=== PATIENT | male | born 1965 | race Caucasian/White ===

== ENCOUNTER → 2016-03-15 | Outpatient (CLI) | payer BC ==
[~2016-03-15] MED LIST: NORCO 325 MG-7.1 TAB PO; XANAX 0.5MG0.5 MG PO
== END ==
LOC: BHSO 11:29
DX: F06.32 Mood disorder due to known physiological condition with major depressive-like episode (principal)

== ENCOUNTER 2016-08-03 05:29 | Day surgery (SDC) | payer BC ==
[2016-08-03] VITALS (7 sets, daily range): BP systolic 124–149; BP diastolic 75–98; PULSE 56–77; TEMP 97.3–98.3
[~2016-08-03] VITALS: Ht 172.7 cm; Wt 102.8 kg
[~2016-08-03 05:29] MED LIST changes: -NORCO 325 MG-7.1 TAB PO
[2016-08-03] MEDS ORDERED: NORCO 325 MG-7.1 TAB PO (09:49)
== END 2016-08-03 11:30 | disposition home or self-care (01) ==
LOC: SDCO 05:29
DX: K40.90 Unilateral inguinal hernia, without obstruction or gangrene, not specified as recurrent (principal); D17.6 Benign lipomatous neoplasm of spermatic cord; G47.00 Insomnia, unspecified; F41.9 Anxiety disorder, unspecified; Z98.1 Arthrodesis status; Z87.01 Personal history of pneumonia (recurrent)
CPT/HCPCS: A4315; C1781; J0330; J0690; J1100; J1885; J2405; J2704; J3010; J7120

== ENCOUNTER → 2016-12-19 | Outpatient (CLI) | payer BC ==
[~2016-12-19] MED LIST changes: +NORCO 325 MG-7.1 TAB PO
== END ==
LOC: BHSO 15:39
DX: F41.0 Panic disorder [episodic paroxysmal anxiety] (principal)

== ENCOUNTER → 2017-06-16 | Outpatient (CLI) | payer OTHER | LOC: BHSO 15:41 | DX: F41.1 Generalized anxiety disorder (principal) | CPT/HCPCS: G0463 ==

== ENCOUNTER → 2017-12-15 | Outpatient (CLI) | payer OTHER | LOC: BHSO 14:53 | DX: F31.81 Bipolar II disorder (principal) | CPT/HCPCS: G0463 ==

== ENCOUNTER → 2018-06-07 | Outpatient (CLI) | payer OTHER | LOC: BHSO 15:19 | DX: F41.1 Generalized anxiety disorder (principal) | CPT/HCPCS: G0463 ==

== ENCOUNTER → 2018-11-30 | Outpatient (CLI) | payer OTHER | LOC: BHSO 16:19 | DX: F41.1 Generalized anxiety disorder (principal) | CPT/HCPCS: G0463 ==

== ENCOUNTER 2020-04-13 11:00 | Day surgery (SDC) | payer OTHER ==
[2020-04-13] VITALS (10 sets, daily range): BP systolic 125–164; BP diastolic 83–99; PULSE 56–75; TEMP 98.6
[~2020-04-13] VITALS: Ht 172.8 cm; Wt 107.0 kg
[2020-04-13] MEDS ORDERED: ASPIRIN E.C. 8181 MG PO (12:08)
[2020-04-13] MEDS ORDERED: COZAAR 25MG25 MG/TAB PO (12:09)
[2020-04-13] MEDS ORDERED: TOPROL XL 25MG25 MG PO (12:10)
[2020-04-13 12:22] LABS: CALCIUM 9.4 mg/dL (8.4-10.2); CREATININE, serum 1.06 (0.66-1.25); POTASSIUM 4.5 mmol/L (3.4-5.0)
[2020-04-13 12:29] LABS: HEMATOCRIT 47.7 % (42.0-52.0); HEMOGLOBIN 16.7 g/dl (13.5-18.0); INR 1.1 (0.8-3.0); MEAN CELL VOLUME 87 fl (80.0-100.0); MEAN CORPUSCULAR HEMOGLOBIN 30 pg (27.0-31.0); MEAN CORPUSCULAR HGB CONC 35 g/dl (33.0-37.0); MEAN PLATELET VOLUME 11.6 fl (7.4-10.4); PLATELET COUNT 153 K/mm3 (130-400); PROTHROMBIN TIME 12.1 SECONDS (9.7-12.8); REDCELL DISTRIBUTION WIDTH-CV 12.2 % (11.5-14.5)
[2020-04-13 12:31] LABS: PARTIAL THROMBOPLASTIN TIME 35.3 SECONDS (26.0-37.0)
--- NOTE | 2020-04-13 13:23 | NUR ---
SEE MERGE AND ANESTHESIA RECORD FOR MEDICATION ADMINISTRATION TIMES, INTRA AND POST SEDATION ASSESSMENT
--- NOTE | 2020-04-13 14:20 | NUR ---
pt recieved from [employer] labou[employer] via bed. pt is sleepy, awakens easily. VSS, tele on. call light in reach.
--- NOTE | 2020-04-13 15:05 | NUR ---
pt sips on sprite, dino tray ordered, pt and nurse talked with on update after procedure, more awake, watches TV
--- NOTE | 2020-04-13 15:38 | NUR ---
PT UP TO B/R TO VOID, GAIT STEADY, RADIAL SITE WITH BRACE SUPPORT REMAINS THE SAME, PT SITS UP IN BED EATS MEAL
--- NOTE | 2020-04-13 17:17 | NUR ---
Air removed from TR band in 2-4 ml increments without issue. Rt radial puncture site dressed with 2x2 and bandaid. IV DC'd with catheter intact. Pt has steady gait in room. Has eaten without complaint of nausea. Expresses understanding of DC instructions. He is assisted out by wheelchair to 's car with personal belongings.
== END 2020-04-13 17:19 | disposition home or self-care (01) ==
LOC: COL.CAR 11:00
PROVIDERS: Internal Medicine Cardiovascular Disease
DX: I25.10 Atherosclerotic heart disease of native coronary artery without angina pectoris (principal); I08.1 Rheumatic disorders of both mitral and tricuspid valves; G47.33 Obstructive sleep apnea (adult) (pediatric); G89.29 Other chronic pain; F41.9 Anxiety disorder, unspecified
CPT/HCPCS: J1644; J2250; J2704

== ENCOUNTER → 2021-06-17 | Outpatient (CLI) | payer OTHER ==
[~2021-06-17] MED LIST changes: +ASPIRIN E.C. 8181 MG PO; +COZAAR 25MG25 MG/TAB PO; +TOPROL XL 25MG25 MG PO
== END ==
LOC: COL.VAS 14:13
DX: I34.0 Nonrheumatic mitral (valve) insufficiency (principal)

== ENCOUNTER → 2022-12-07 | Outpatient (CLI) | payer OTHER | LOC: DIA.ED 05:48 | DX: E11.59 Type 2 diabetes mellitus with other circulatory complications (principal); Z79.84 Long term (current) use of oral hypoglycemic drugs; I10 Essential (primary) hypertension | CPT/HCPCS: G0108 ==